=== PATIENT | male | born 1945 | race Caucasian/White ===

== ENCOUNTER 2025-03-17 10:57 | Outpatient (AMB) | payer MEDICARE, OTHER, SELFPAY ==
--- OUTSIDE RECORDS SUMMARY | 2019-04-22 09:59 | XMS_ITS | Encounter Summary ---
Author Organization [facility] Address [address] [place] [address] Care Team Providers Care Trommel Tender Name Role Phone Alicia Austin MD Primary Care Provider Encounter Details Date Type Department Care Team (Late st Contact Info) Description 04/22/2019 9:59 AM EST Hospital Encounter [facility] [address] [place] [id number] Edwin Bahena MD [address] [place] [address] Social History Tobacco Use Types Packs/Day Years Used Date Smoking Tobacco: Never Smokeless Tobacco: Never Sex and Gender Information Value Date Recorded Sex Assigned at Not on file Legal Sex Male 1:38 PM EDT Gender Identity Not on file Sexual Orientation Not on file documented as of this encounter Plan of Treatment Not on file documented as of this encounter Procedures Procedure Name Priority Date/Time Associated Diagnosis Comments XR CHEST 2 VIEWS STAT 04/22/2019 10:0 7 AM EST Cough documented in this encounter Results * XR Chest 2 views (04/22/2019 10:07 AM EST) Anatomical Region Laterality Modality Chest Computed Radiogr aphy 04/22/2019 10:0 8 AM EST Impressions 04/22/2019 10:08 AM EST Normal. Narrative 04/22/2019 10:08 AM EST PA & lateral views of the chest. No comparison studies. The lungs are clear. No pneumothorax, pleural fluid, or vascular congestion. Normal heart size. Procedure Note Octavio Patricia MD - 04/22/2019 PA & lateral views of the chest. No comparison studies. The lungs are clear. No pneumothorax, pleural fluid, or vascular congestion. Normal heart size. IMPRESSION: Normal. Mayank SULLIVAN IMG DIAGNOSTIC IMAGING ORDERAB LES Final Result documented in this encounter Visit Diagnoses Not on filedocumented in this encounter Care Teams Trommel Tender Relationship Specialty Start Date End Date Alicia Austin MD [address] [place] [id number] PCP - General Internal Medicine 07/11/18 documented as of this encounter
--- NOTE | 2025-03-17 11:27 | A.OFFVIS_ITS ---
Intake Visit Reasons: 6m follow up FLD HPI Comments Details: 79 yo man with congenital deafness s/p choclear implant, dementia with frontotemporal degeneration and associated cognitive and behavioral issues. He is presenting with left-sided lower back pain radiating to her ankle. The p ain started approximately one month ago and has worsened, with increased spread to the ankle noted yesterday. She has never experienced pain this severe before and has tried using heat for relief. The pain is significant enough to interfere with daily activities like grocery shopping and banking, and she has a fear of falling. Her past medical history is significant for spinal stenosis, for which she has undergone one back surgery. She also has a history of a tremor, for which she takes propranolol three times a day. She notes having difficulty opening her hand and describes a mild hand trigger. Additional medical history includes asthma, managed with a Breo inhaler, and she takes pregabalin. Review of Systems Narrative - Musculoskeletal: Reports pain in the left lower back radiating to the ankle. - Neurological: Reports a tremor and difficulty opening her hand. - Psychiatric: Reports fear of falling. Physical Exam Neuro Other: Mental Status: Alert and oriented to person, place, and time. Normal attention. Normal spontaneous speech, fluency, and comprehension. No obvious issues with mood and memory. Affect is appropriate. Cranial Nerves: CN II: Visual arce full to confrontation, visual acuity intact. CN III, IV, : Pupils equal, round, reactive to light and accommodation. Extraocular movements are normal. CN V: Facial sensation is normal. CN VII: Facial movements symmetrical. CN VIII: Hearing intact to bedside conversation is minimal to none. CN IX, X: Palate elevates symmetrically. CN XI: Shoulder shrug and head turn symmetrical. CN XII: Tongue midline without atrophy or fasciculations. Extrapyramidal: Full facial expressions and blinking. No rigidity. Movements are appropriate with no tremor or abnormality. Speech: Normal; no dysarthria or tremor. Assessment & Plan Assessment & Plan (1) Frontotemporal brain disease: Comment: CT brain WO at [facility] in 2020: mild to mod FT atrophy, one right basal ganglia infarct Labs at [facility] in 2020: Lyme, RPR, B12, ESR WNL. Code(s): G31.09 - Other frontotemporal neurocognitive disorder; F02.80 - Dementia in other diseases classified elsewhere, unspecified severity, without behavioral disturbance, psychotic disturbance, mood disturbance, and anxiety Category: Medical (2) Congenital deafness: Code(s): H90.5 - Unspecified sensorineural hearing loss Category: Medical Plan Impression: Frontotemporal encephalopathy with head CT in the past revealing ghgi-qu-[id number] frontotemporal atrophy Recommendations: 1. Sertraline 100 mg 1 a day 2. Quetiapine 50 mg twice a day I explained to the patient and her advanced research programs director that her pain is likely due to her history of spinal stenosis, which is causing nerve pressure and inflammation. To manage this, I prescribed a 10-day course of prednisone to reduce pain and inflammation. I advised her to continue her current propranolol regimen for her tremor. We will schedule a nerve test for her back and leg, and I also mentioned that physical therapy could be beneficial. I informed them that if these interventions do not resolve her pain, a referral to a pain specialist would be the next step. Medications: New quetiapine 50 mg PO BID 180 tabs 0RF sertraline 100 mg PO DAILY 90 tabs 0RF Coding Level of Care Code Est Pt Level 4 (91591) Diagnoses Frontotemporal brain disease G31.09; F02.80 Congenital deafness H90.5
--- OUTSIDE RECORDS SUMMARY | 2025-03-17 14:22 | XMS_ITS ---
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 Positive 2 left bx's 02/05/18 [place] 6 (3+3). Current Treatment and Therapy Plans No current plan information found. Past Treatment and Therapy Plans No past plan information found. Lifetime Dose Tracking * Chemical Lifetime Dose Automatic Entry Manual Entr y CTDIvol 13.03 mGy 13.03 mGy 0 mGy
--- OUTSIDE RECORDS SUMMARY | 2025-03-17 14:22 | XMS_ITS | Encounter Summary ---
Author Organization [facility] [place] [address] Care Team Providers Care Assessment Services Manager Name Role Phone Michelle Serrano MD Primary Care Provider [phone] Encounter Details Date Type Department Care Team (Late st Contact Info) Description 05/29/2024 Telephone Internal Medicine - [facility] [address] [place] [address] Tiny Soriano, [address] [place] [address] Social History Tobacco Use Types Packs/Day Years Used Date Smoking Tobacco: Former Cigarettes 1 Q uit: 04/02/1992 Smokeless Tobacco: Never Alcohol Use Standard Drinks/Week Comments Not Currently 0 (1 standard drink = 0.6 oz pur e alcohol) Housing Instability Answer Date Recorde d Are you worried that in the next 2 months you may not have stable housing? No 03/07/2024 Food Access & Nutrition Answer Date Rec orded Do you have access to a vari ety of food including fruits and vegetables? No 03/07/2024 Health Literacy Answer Date Recorded How often do you need to hav e someone help you when you read instructions, pamphlets, or other written material from your doctor or pharmacy? Never 03/07/2024 Caregiver: How often do you need to have someone help you when you read instructions, pamphlets, or other written material from your doctor or pharmacy? Not on file 03/07/2024 Financial Risk Answer Date Recorded How hard is it for you to pa y for the very basics like food, housing, medical care, and air conditioning / heating? Not very hard 03/07/2024 Transportation Answer Date Recorded Has the lack of transportati on kept you from meetings, work, or from getting things needed for daily living? No Has the lack of transportati on kept you from medical appointments or from getting medications? No 03/07/2024 Social Isolation Answer Date Recorded How often do you feel lonely or isolated from th ose around you? Never 03/07/2024 Food Risk Answer Date Recorded Within the past 12 months we worried whether our food would run out before we got money to buy more. Never true 03/07/2024 Within the past 12 months th e food we bought just didn't last and we didn't have money to get more. Never true 03/07/2024 Dependent Care Answer Date Recorded Do you need help finding or paying for care for your loved ones. For example, child protective services specialist or elderly care for an older adult? No 03/07/2024 Education Answer Date Recorded Do you think completing more education or training, like finishing a GED, going to college, or learning a trade, would be helpful for you? No 03/07/2024 Employment and Income Answer Date Recor ded During the last four weeks, have you been actively looking for work? No 03/07/2024 Living Situation Answer Date Recorded What is your living situation? Unrecognized valu e 03/07/2024 Sex and Gender Information Value Date Recorded Sex Assigned at Not on file Legal Sex Male 1:19 AM EST Gender Identity Not on file Sexual Orientation Not on file documented as of this encounter Plan of Treatment Upcoming Encounters Date Type Department Care Team (Late st Contact Info) Description 09/08/2025 9:45 AM EDT Office Visit Internal Medicine - [address] [phone] Olga Bazzi NP [address] [place] [phone] documented as of this encounter Visit Diagnoses Diagnosis Gastroesophageal reflux disease, unspecified whether esophagitis present documented in this encounter Additional Health Concerns Assessment Noted Time PHQ-9 Depression Total Score: 0 03/07/20 24 10:15 AM EST documented as of this encounter Care Teams Assessment Services Manager Relationship Specialty Start Date End Date Michelle Serrano MD [address] [facility] [place] [address] PCP - General Internal Medicine 11/24/24 documented as of this encounter
--- OUTSIDE RECORDS SUMMARY | 2025-03-17 14:22 | XMS_ITS ---
[facility] Name [facility] History of Medication Use Medication Directions Dispensed Refills Start Date End Date Stat us doxycycline hyclateT dede 1 capsule (Oral) 2 times per day for 7 [id number] times per [id number] 07/02/2023 acti ve baclofenTake 1 Table t (oral) 3 times per day for 3 [id number] times per jcorung1gopqyhgsgfoqh57rr 05/18/2022 biswas spended sertralineTake (oral)[id number] frequency recordedoralNo set duration recordedNo set duration amount wflukodufelgbs857bw 04/18/2022 active quetiapineTake (oral)[id number] frequency recordedoralNo set duration recordedNo set duration amount cbqibzibhxkevk89pk 04/11/2022 active omeprazoleTake (oral)[id number],papa yed release(DR/EC)No frequency recordedoralNo set duration recordedNo set duration amount igsgzstduwtbft76ft 03/14/2022 active tamsulosinTake (oral)[id number] frequency recordedoralNo set duration recordedNo set duration amount recordedactive0.4mg 09/02/2021 active O51MrdeZo date recor dedNo form recordedNo frequency recordedNo route recordedNo set duration recordedNo set duration amount recordedactiveNo dosage strength recordedNo dosage strength units of measure recorded active Problems Problem Status Onset Date Problem Type Date of Resoluti on Source Malignant neoplasm of prostate active [facility]Act [facility] Unspecified dementia, unspecified severity, without behavioral disturbance, psychotic disturbance, mood disturbance, and anxiety active [facility]Act [facility] Depression active ProblemAct [facility] Anxiety disorder, unspecified active ProblemAct [facility] Cough, unspecified active 2023-07-02 ProblemAct [facility] Encounters Encounter Type Encounter Reason Primary Diagnosis Location Date [facility]ulatory [facility] 07/02/2023 Emergency Primary osteoarthritis, unspecified shoulder Primary osteoarthritis, unspecified shoulder [facility] 02/21/2023 Care Team Organization Name Specialty Phone Email Start Date End [facility] te [facility] 11/19/2024 [facility] Not Found Primary Care 07/02/2023 12/22/2024 [facility] Not [facility] Primary Care 07/02/2023 [facility] 04/22/2023 [facility] NINA CAMARENA Primary Care 02/22/20 23 02/21/[address] [facility] Radha Bullard Primary Care 12/07/[address] [facility] Manuel Huerta Primary Care 02/07/20222023
--- OUTSIDE RECORDS SUMMARY | 2025-03-17 14:23 | XMS_ITS | Encounter Summary ---
Author Organization [facility] [place] [address] Care Team Providers Care Front End Loader Operator Name Role Phone Michelle Serrano MD Primary Care Provider [phone] Encounter Details Date Type Department Care Team (Late st Contact Info) Description 01/26/2025 Lab Requisition [facility] - Main Lab [address] [facility] [place] [address] Kyle Paula MD [address] [place] [address] Elevated prostate specific antigen (PSA) Social History Tobacco Use Types Packs/Day Years [...] for your loved ones. For example, child welfare director or elderly care for an older adult? [...] AM EDT Office Visit Internal Medicine - [address] [phone] Olga Bazzi NP [address] [place] [address] documented as of this encounter Procedures Procedure Name Priority Date/Time Associated Diagnosis Comments PROSTATE SPECIFIC ANTIGEN DIAGNOSTIC Routine 01/26/2025 9:46 AM EDT Elevated prostate specific antigen (PSA) documented in this encounter Results * (ABNORMAL) Prostate specific antigen diagnostic (01/26/2025 9:46 AM EDT) PSA 13.41(H) 0.00 - 4.00 ng/mL LAB CHEMISTRY METHOD 01/26/2025 1:19 PM EDT [facility] Blood Venous blood specimen / Unknown 01/26/2025 9:46 AM EDT 01/26/2025 12:12 PM EDT Narrative [facility] - 01/26/2025 1:19 PM EDT The Siemens Advia Lipperheyaur Chemiluminescent Immunoassay is used. Results obtained with different assay methods or kits cannot be used interchangeably. Results cannot be interpreted as absolute evidence of the presence or absence of malignant disease. us Kyle Paula MD LAB BLOOD ORDERABLES Fin al Result [facility] [address] [place] [address], documented in this encounter Visit Diagnoses Diagnosis Elevated prostate specific antigen (PSA) documented in this encounter Additional Health Concerns Assessment Noted Time PHQ-9 Depression Total Score: 0 03/07/20 24 10:15 AM EST documented as of this encounter Care Teams Front End Loader Operator Relationship Specialty Start Date End Date Michelle Serrano MD [address] [facility] [place] [address] PCP - General Internal Medicine 11/24/24 documented as of this encounter
--- OUTSIDE RECORDS SUMMARY | 2025-03-17 14:23 | XMS_ITS | Clinical Summary ---
Author Organization [facility] Prior to 08/30/24 Address [address] [place] [address] Care Team Providers Care Tailor Fitter Name Role Phone Jluis Olga Primary Care Provider [phone] Allergies Active Allergy Reactions Criticality Noted Date Comments Penicillins 07/08/2016 Medications Medication Sig Dispensed Refills Start Date End Date Status tamsulosin (FLOMAX) 0.4 MG CAPS Take 0.4 mg by mouth daily. 0 05/27/2020 Active vitamin B-12 (CYANOCOBALAMIN) 50 MCG tablet Take 50 mcg by mouth daily. 0 Active omeprazole (PriLOSEC) 40 MG capsule Take 1 capsule (40 mg total) by mouth daily. 0 01/09/2023 Active QUEtiapine (SEROquel) 25 MG tablet Take 1 tablet (25 mg total) by mouth 2 (two) times a day. 25 in the morning and 50mg at bedtime 0 12/26/2022 Active sertraline (ZOLOFT) 100 MG tablet Take 1 tablet (100 mg total) by mouth daily. 0 12/26/2022 Active ibuprofen 800 MG tablet Take 1 tablet (800 mg total) by mouth every 8 (eight) hours as needed for pain for up to 15 doses. 15 tablet 0 02/21/2023 Active acetaminophen (TYLENOL) 325 MG tablet Take 3 tablets (975 mg total) by mouth every 8 (eight) hours as needed for pain for up to 15 doses. 15 tablet 0 02/21/2023 Active Active Problems No known active problems Family History Medical History Relation Name Comments Clotting disorder Neg Hx Social History Tobacco Use Types Packs/Day Years Used Date Smoking Tobacco: Former Smokeless Tobacco: Never Tobacco Cessation:Counseling Given: Not Answered Alcohol Use Standard Drinks/Week Comments Yes 2 (1 standard drink = 0.6 oz pur e alcohol) daily Sex and Gender Information Value Date Recorded Sex Assigned at Male 06/16/2020 8:06 PM EDT Gender Identity Male 06/16/2020 8:06 PM EDT Sexual Orientation Not on file Job Start Date Occupation Industry Not on file Not on file Not on file Last Filed Vital Signs Vital Sign Reading Time Taken Comments Blood Pressure 135/81 02/21/2023 3:31 PM EST Pulse 62 02/21/2023 3:31 PM EST Temperature 36.6 C (97.8 F) 02/21/2023 3:31 PM EST Respiratory Rate 17 02/21/2023 3:31 PM EST Oxygen Saturation 97% 02/21/2023 3:31 PM EST Inhaled Oxygen Concentration - - Weight 83.9 kg (185 lb) 02/21/2023 12:49 PM EST Height 167.6 cm (5' 6 ) 02/21/2023 12:49 PM EST Body Mass Index 29.86 02/21/2023 12:49 PM EST Plan of Treatment Health Maintenance Due Date Last Done Comments Depression Screening 1956 Preventative Health Evaluation 1962 DTap / Tdap / Td (1 - Tdap) 11/06/1963 Shingrix-Zoster Vaccine (1 of 2) 1994 Fall Risk Assessment 2009 RSV Adult > 60+ Yrs or (1 - 1-dose 75+ series) 11/06/2019 COVID-19 Vaccine ( season) 2024 08/18/2021, 12/28/2020, 05/30/2020, Additional history exists Influenza Vaccine (#1) 2024 3, 01/27/2022, 01/17/2021, Additional history exists Pneumococcal Vaccine Completed 02/09/2017, 02/08/2016, 01/27/2010 Hepatitis B Vaccines Aged Out No long er eligible based on patient's age to complete this topic RSV Ped < 20 months Aged Out No longe r eligible based on patient's age to complete this topic Care Teams Tailor Fitter Relationship Specialty Start Date End Date Olga Bazzi [address] [place] [id number] PCP - General Family Medicine 02/21/23
--- OUTSIDE RECORDS SUMMARY | 2025-03-17 14:23 | XMS_ITS | Clinical Summary ---
Author Organization [place] [address] [address] [facility] Address [facility] [address] Phone Care Team Providers Care Colorectal Surgeon Name Role Phone Michelle Serrano MD Primary Care Provider [phone] Allergies Active Allergy Reactions Criticality Noted Date Comments Penicillins Rash 08/10/2011 Medications sertraline (ZOLOFT) 100 mg tablet Take 1 tablet (100 mg total) by mouth 1 (one) time each day. 4 Active tamsulosin (FLOMAX) 0.4 mg 24 hr capsule Take 1 Capsule by mouth daily. Per Urology 3 Active QUEtiapine (SEROquel) 25 mg tablet 2 Active cyanocobalamin (VITAMIN B-12) 50 mcg tablet Take 50 mcg by mouth daily. Active omeprazole (PriLOSEC) [address] capsuleIndicatio ns:Gastroesophag eal reflux disease, unspecified whether esophagitis present Take 1 capsule (40 mg total) by mouth 1 (one) time each day. Do not crush or chew. 90 each 1 5 09/07/19 26 Active omeprazole (PriLOSEC) [address] capsuleIndicatio ns:Gastroesophag eal reflux disease, unspecified whether esophagitis present Take 1 capsule (40 mg total) by mouth 1 (one) time each day. Do not crush or chew. 90 each 1 5 03/10/20 25 Discontinu ed(Reorder ) Active Problems Problem Noted Date Diagnosed Date [...] 2017=>Dr Paula. Positive 2 left bx's 02/05/18 [place] 6 (3+3). Encounters Date Type Department Care Team Description 03/10/2025 9:45 AM EST Office Visit Internal Medicine - [address] [id number] Olga Bazzi NP Urinary retention due to benign prostatic hyperplasia (Primary Dx); History of prostate cancer; Gastroesophageal reflux disease, unspecified whether esophagitis present; Dementia, unspecified dementia severity, unspecified dementia type, unspecified whether behavioral, psychotic, or mood disturbance or anxiety (CMS/HCC V24, CMS/FORMERLY [facility] V28); Lung nodule 01/26/2025 Lab Requisition [facility] - Main Lab [address] [place] [address] Kyle Paula MD Elevated prostate specific antigen (PSA) from Last 3 Months Immunizations Immunization Administration Dates Next Due Influenza Quadravalent, 0.5m l (Fluad) 65yo and older 01/27/2022,01/17/2021 Influenza Quadravalent, 0.5m l (Fluzone High-dose) 65yo and older 01/22/2023 Influenza Quadravalent, MDCK , 0.5ml, with preservative (Flucelvax) 6mo and older 02/09/2017 Influenza trivalent, 0.5mL ( Fluad) 65yo and older 01/27/2020,02/06/2019 Influenza trivalent, 0.5mL ( Fluzone High-dose) 65yo and older 02/18/2024 Influenza trivalent, 0.5mL, preservative free (Fluarix; FluLaval; Fluzone) ages 6mo and older (Afluria) 3 years and older 02/18/2018,02/08/2016,02/19/2015,02/20,02/17/2013,02/14/2012,02/20/2011 ,01/27/2010 Influenza, Unspecified 03/06/2023,03/13/2022,08/2020 [employer] SARS-CoV-2 COVID-19, mRNA, LNP-S, preservative free 12/28/2020,05/30/2020,05/09/2020 Pneumococcal conjugate 13 va lent (Prevnar 13, PCV13) 2mo and older 02/08/2016 Pneumococcal polysaccharide 23 valent (Pneumovax 23) 2yo and older 02/09/2017,01/27/2010 Td Tetanus diptheria (Tdvax) 7yo and older 06/25/2013,08/11/2003 Tdap Tetanus diptheria acell ular pertussis (Boostrix; Adacel) 7yo and older 09/05/2024 Surgical History Surgery Date Site/Laterality Comments OTHER SURGICAL HISTORY PROCEDURE: [place] BIOPSY PROSTATE INCISIONAL ANY APPROACH; COMMENT: Dr Anand x2, negative MULTIPLE TOOTH EXTRACTIONS age 40-50 PROCEDURE: HISTORICAL DENTAL EXTRACTION; COMMENT: all removed, has dentures COLONOSCOPY 2013 PROCEDURE: TN COLONOSCOPY FLX DX W/COLLJ SPEC WHEN PFRMD; COMMENT: normal OTHER SURGICAL HISTORY 06/08/2017 Right PROCEDURE: TN COCHLEAR DEVICE IMPLANTATION W/WO MASTOIDECTOMY; COMMENT: Dr Guzman TURP / TRANSURETHRAL INCISIO N / DRAINAGE PROSTATE 08/02/2020 PROCEDURE: HISTORICAL TURP Medical History Medical History Date Comments Colon polyp 08/26/2011 DX:Colon polyp Prostate cancer ([facility]/HCC V24 , CMS/HCC V28) 08/10/2011 DX:Prostate cancer (HCC) Acquired complex cyst of kidney 07/12/2020 DX:Acquired complex cyst of kidney; COMMENT: L mid upper pole BPH with urinary obstruction 07/12/2020 DX: BPH with urinary obstruction Urinary retention due to danny ign prostatic hyperplasia 07/12/2020 DX:Urinary retention due to benign prostatic hyperplasia Dementia ([facility] V24, [facility] V28) Family History Medical History Relation Name Comments Prostate cancer Brother Jin Congenital h earing loss, cochlear implant 2015 Other: congenital hearing loss Daughter Daxa & her daughter Ortiz in & her son have congenital hearing loss Angioplasty Father Father was deaf in childhood Dementia Mother Other: hearing loss Paternal Grandfather congenital hearing loss in childhood Other: no hearing loss Sister Teresa Relation Name Status Comments Brother Jin Daughter Daxa Alive Father (Age 85) old age, b ut had angioplasty at age 67 Mother in [place] as of 08/01 012 with dementia Paternal Grandfather Sister Teresa Alive younger 2yrs Social History Tobacco Use Types Packs/Day Years Used Date Smoking Tobacco: Former Cigarettes 1 Q uit: 04/02/1992 Smokeless Tobacco: Never Tobacco Cessation:Counseling Given: Not Answered Alcohol Use Standard Drinks/Week Comments Not Currently [...] for your loved ones. For example, child and adolescent psychiatrist or elderly care for an older adult? [...] on file Sexual Orientation Not on file Last Filed Vital Signs Vital Sign Reading Time Taken Comments Blood Pressure 119/72 03/10/2025 9:31 AM EST Pulse 66 03/10/2025 9:31 AM EST Temperature - - Respiratory Rate - - Oxygen Saturation - - Inhaled Oxygen Concentration - - Weight 89 kg (196 lb 3.2 oz) 03/10/2025 9:31 AM EST Height 167.6 cm (5' 6 ) 03/07/2024 9:19 AM EST Body Mass Index 31.67 03/07/2024 9:19 AM EST Plan of Treatment Upcoming Encounters Date Type Department Care Team (Late st Contact Info) Description 09/08/2025 9:45 AM EDT Office Visit Internal Medicine - [facility] [address] [place], [place] [phone] Olga Bazzi NP [address] [place] [address] Health Maintenance Due Date Last Done Comments Zoster Vaccines (1 of 2) 11/06/1964 RSV Immunization Adult Patients (1 - 1-dose 75+ series) 11/06/2019 Depression Screening 04/02/2024 03/07/2024 Falls Risk Assessment 09/04/2024 09/05/2023 COVID-19 Vaccine (4 - season) 2024 12/28/2020, 05/30/2020, 05/09/2020 Influenza Vaccine (#1) 2024 , 03/06/2023, 01/22/2023, Additional history exists Medicare Annual Wellness Visit 03/07/2025 03/07/2024 Social Influencers of Health Screening 03/07/2025 03/07/2024 Cholesterol Screening (Lipid Panel) 09/05/2029 09/05/2024, 09/05/2023, 09/05/2023 DTaP,Tdap,and Td Vaccines (4 - Td or Tdap) 09/05/2034 09/05/2024, 06/25/2013, 08/11/2003 Pneumococcal Vaccine: 50+ Years Completed 02/09/2017, 02/08/2016, 01/27/2010 HIB Vaccines Aged Out No longer eligi ble based on patient's age to complete this topic HPV Vaccines Aged Out No longer eligi ble based on patient's age to complete this topic Hepatitis A Vaccines Aged Out No long er eligible based on patient's age to complete this topic Hepatitis B Vaccines Aged Out No long er eligible based on patient's age to complete this topic IPV Vaccines Aged Out No longer eligi ble based on patient's age to complete this topic MMR Vaccines Aged Out No longer eligi ble based on patient's age to complete this topic Meningococcal ACWY Vaccine Aged Out N o longer eligible based on patient's age to complete this topic Meningococcal B Vaccine Aged Out No l onger eligible based on patient's age to complete this topic RSV Immunization Patients Under 20 months Aged Out No longer eligible based on patient's age to complete this topic Varicella Vaccines Aged Out No longer eligible based on patient's age to complete this topic Procedures Procedure Name Priority Date/Time Associated Diagnosis Comments PROSTATE SPECIFIC ANTIGEN DIAGNOSTIC Routine 01/26/2025 9:46 AM EDT Elevated prostate specific antigen (PSA) LIPID PANEL WITH REFLEX TO DIRECT LDL Routine 09/05/2024 10:30 AM EDT Screening for cardiovascular condition HM FALLS RISK ASSESSMENT Routine 09/05/2023 from Last 3 Months or Most Recently Relevant to Health Maintenance Results * (ABNORMAL) Prostate specific antigen diagnostic (01/26/2025 9:46 AM EDT) Pathologist [facility] PSA 13.41(H) 0.00 - 4.00 ng/mL LAB CHEMISTRY METHOD 01/26/2025 1:19 PM EDT [facility] Blood Venous blood specimen / Unknown 01/26/2025 9:46 AM EDT 01/26/2025 12:12 PM EDT Narrative [facility] - 01/26/2025 1:19 PM EDT The Siemens Advia Siteheartaur Chemiluminescent Immunoassay is used. Results obtained with different assay methods or kits cannot be used interchangeably. Results cannot be interpreted as absolute evidence of the presence or absence of malignant disease. Kyle Paula MD LAB BLOOD ORDERABLES Fin al Result [facility] [address] [place] [address], [place] [phone] * (ABNORMAL) Lipid panel with reflex to direct LDL (09/05/2024 10:30 AM EDT) [facility] Cholesterol 167 0 - 200 mg/dL LAB CHEMISTRY METHOD 09/05/2024 3:22 PM EDT [facility] Triglycerides 156(H) 0 - 150 mg/dL LAB CHEMISTRY METHOD 09/05/2024 3:22 PM EDT [facility] HDL 47 >=40 mg/dL LAB CHEMISTRY METHOD 09/05/2024 3:22 PM EDT [facility] LDL Calculated 89 0 - 100 mg/dL LAB CHEMISTRY METHOD 09/05/2024 3:22 PM EDT [facility] VLDL Cholesterol Ort[place] 31.2 mg/dL LAB CHEMISTRY METHOD 09/05/2024 3:22 PM EDT [facility] Non HDL Chol. (LDL+VLDL) 120 <145 mg/dL LAB CHEMISTRY METHOD 09/05/2024 3:22 PM EDT [facility] Chol/HDL Ratio 3.6 0.0 - 4.4 LAB CHEMISTRY METHOD 09/05/2024 3:22 PM EDT [facility] Blood Venous blood specimen / Unknown Venipuncture / Unknown 09/05/2024 10:30 AM EDT 09/05/2024 10:30 AM EDT us Olga Bazzi CENTRAL OFFICE INSTALLER LAB BLOOD ORDERABLES Final Resul t [facility] [address] [place] [address], * Falls Risk Assessment (09/05/2023) Falls Risk Assessment Abstracted Historical Provider HEALTH MAINTENANCE Final Result from Last 3 Months or Most Recently Relevant to Health Maintenance Insurance MEDICARE Care Teams Colorectal Surgeon Relationship Specialty Start Date End Date Michelle Serrano MD [address] [place], [place] PCP - General Internal Medicine 11/24/24
--- OUTSIDE RECORDS SUMMARY | 2025-03-17 14:23 | XMS_ITS | Clinical Summary ---
Author Organization [facility] Address [address] [place] [address] Care Team Providers Care Certified Drug Counselor Name Role Phone Alicia Austin MD Primary Care Provider [phone] Allergies Active Allergy Reactions Criticality Noted Date Comments Penicillins Rash/Dermatitis Low 07/11/2018 Medications OMEprazole (PriLOSEC) 20 MG capsule Take 20 mg by mouth every morning before breakfast. Active tamsulosin (FLOMAX) 0.4 MG capsule Take 0.4 mg by mouth daily. Active fluticasone (FloNASE) 50 mcg/spray nasal sprayIndications :Viral upper respiratory tract infection 1 spray into each nostril daily. 1 Bottle 07/11/2018 Active benzonatate (TESSALON) 200 MG capsuleIndicatio ns:Cough Take 1 capsule (200 mg total) by mouth 3 (three) times a day as needed for cough. 30 capsule 04/22/2019 Active Social History Tobacco Use Types Packs/Day Years Used Date Smoking Tobacco: Never Smokeless Tobacco: Never Sex and Gender Information Value Date Recorded Sex Assigned at Not on file Legal Sex Male 1:38 PM EDT Gender Identity Not on file Sexual Orientation Not on file Last Filed Vital Signs Vital Sign Reading Time Taken Comments Blood Pressure 152/82 04/22/2019 9:50 AM EST Pulse 80 04/22/2019 9:50 AM EST Temperature 36.9 C (98.4 F) 04/22/2019 9:50 AM EST Respiratory Rate - - Oxygen Saturation 98% 04/22/2019 9:50 AM EST Inhaled Oxygen Concentration - - Weight 86.2 kg (190 lb) 04/22/2019 9:50 AM EST Height 167.6 cm (5' 6 ) 04/22/2019 9:50 AM EST Body Mass Index 30.67 04/22/2019 9:50 AM EST Plan of Treatment Health Maintenance Due Date Last Done Comments Advance Care Planning 1945 DTaP/Tdap/Td Vaccines (1 - Tdap) 11/06/1963 Pneumococcal Vaccines 50+ (1 of 1 - PCV) 1994 Zoster (Shingles) Vaccine (1 of 2) 1994 RSV Vaccine 50 years and older and Patients (1 - 1-dose 75+ series) 11/06/2019 Influenza Vaccine 10/31/2024 02/06/2019, 02/18/2018 COVID-19 Vaccine ( - 2024-2 6 season) 2024 12/28/2020, 05/30/2020, 05/09/2020 Hepatitis B Vaccines Aged Out No long er eligible based on patient's age to complete this topic Insurance MEDICARE PART A & B [facility] Care Teams Certified Drug Counselor Relationship Specialty Start Date End Date Alicia Austin MD [address] [facility] [place] [address] PCP - General Internal Medicine 07/11/18
== END 2025-03-17 11:42 | disposition home or self-care (01) ==
LOC: HO.HSM 10:58
PROVIDERS: PCP Internal Medicine; Visit Provider Psychiatry & Neurology Neurology
DX: G31.09 Other frontotemporal neurocognitive disorder (principal); F02.80 Dementia in other diseases classified elsewhere, unspecified severity, without behavioral disturbance, psychotic disturbance, mood disturbance, and anxiety; H90.5 Unspecified sensorineural hearing loss
CPT/HCPCS: 99214

== ENCOUNTER → 2025-03-17 10:57 | Outpatient (BNVA) | payer MEDICARE, OTHER, SELFPAY | PROVIDERS: PCP Internal Medicine; Visit Provider Psychiatry & Neurology Neurology | DX: G31.09 Other frontotemporal neurocognitive disorder (principal); F02.80 Dementia in other diseases classified elsewhere, unspecified severity, without behavioral disturbance, psychotic disturbance, mood disturbance, and anxiety; H90.5 Unspecified sensorineural hearing loss | CPT/HCPCS: 99212 ==